=== PATIENT | male | born 1950 | race Caucasian/White ===

== ENCOUNTER 2022-05-17 10:51 | Emergency (ER) | payer MEDICARE, SELFPAY ==
[2022-05-17 11:01] VITALS: BP 140/73; PULSE 104; RESP 20; TEMP 39.3; O2SAT 96
[2022-05-17 11:20] VITALS: TEMP 39.3
[2022-05-17] MEDS: ACETAMINOPHEN 500 MG TABLET 1000 MG PO (11:20)
--- NOTE | 2022-05-17 11:21 | ED.GENADULT ---
HPI - General Adult General Chief complaint: Upper Respiratory Infection Stated complaint: Chills,Bodyaches Time Seen by Provider: 05/17/22 11:21 Source: patient, RN notes reviewed and old records reviewed Mode of arrival: ambulatory Limitations: no limitations History of Present Illness HPI narrative: 72-year-old male presents to the [facility] with complaints chills and body aches. Symptoms started this morning. Patient states symptoms started about 4:00 a.m.. Approximately 7 hours prior to arrival. 102.8 fever in triage. Last dose of Tylenol was 0400 Patient denies abdominal pain. No urinary symptoms. Denies chest pain or shortness of breath. Denies sinus symptoms or sore throat. Patient denies any past medical or surgical history. Onset (ago): hour(s) (7-8 hours) Related Data Home Medications Medication Instructions Recorded Confirmed No Home Medications 05/17/22 05/17/22 Allergies Allergy/AdvReac Type Severity Reaction Status Date / Time poison juana extract Allergy Mild Rash Verified 05/17/22 11:03 Review of Systems Review of Systems: All systems reviewed & are unremarkable except as noted in HPI and below Constitutional: Constitutional: Reports as per HPI and Reports fever(s) Eyes: Eyes: Reports no additional eye complaints ENT: Reports system reviewed and no additional complaints, except as documented Cardiovascular: Cardiovascular: Reports no additional cardiovascular complaints, Denies chest pain and Denies dyspnea Respiratory: Respiratory: Reports no additional respiratory complaints, Denies chest congestion, Denies cough and Denies dyspnea Gastrointestinal: Gastrointestinal: Reports no additional gastrointestinal complaints, Denies abdominal pain, Denies nausea and Denies vomiting Musculoskeletal: Musculoskeletal: Reports no additional musculoskeletal complaints Integumentary/Breasts: Skin/Breast: Reports system reviewed and no additional complaints, except as docu Neurologic: Reports system reviewed and no additional complaints, except as documented Psychiatric: Psychiatric: Reports no additional psychiatric complaints Allergic/Immunologic: Allergic/Immunologic: Reports no additional allergic/immunologic complaints [facility] Past Medical History Medical History History of chicken pox History of measles History of mumps Surgical History Surgical History History of vasectomy Hx of appendectomy (~1961) Family History Family History Father Diabetes mellitus Mother Parkinson disease Grandparent , age 67, [place] Heart attack Grandparent , age 91, natural causes No problems noted. Grandparent , age 68 No problems noted. Grandparent , age 92, natural causes No problems noted. Social History Social History Smoking status: Never smoker Alcohol intake: current Comments At the time of my signature, I reviewed and agree with the nursing past medical, surgical, social, and family history. There is no relevant family history pertinent to the patient complaint. Exam Const: General: cooperative, healthy appearing, comfortable, no acute distress, well developed, alert and well nourished Nutritional Appearance: well nourished Orientation/consciousness: patient oriented x3 Limitations: no limitations HENMT: Head: normal to inspection Ears: hearing grossly normal bilaterally and external ears normal Face/Nose/Sinus: Normal external nose present, Normal nares present, Normal nasal mucous membranes and turbinates present and normal facial exam Face and sinus: normal facial exam Mouth: Yes Normal oral and palatal mucosa present, Yes lip normal and Yes moist mucous membranes Throat: posterior oropharynx normal
[2022-05-17 11:41] VITALS: TEMP 39.3
== END 2022-05-17 11:41 | disposition home or self-care (01) ==
PROVIDERS: Emergency Provider Nurse Practitioner; PCP Family Medicine
DX: B34.9 Viral infection, unspecified (principal)
CPT/HCPCS: 87804; 99213; A9270; G0463

== ENCOUNTER 2022-06-16 15:12 | Outpatient (CLI) | payer MEDICARE, SELFPAY ==
--- NOTE | ~2022-06-16 | CT_ITS ---
EXAMINATION: CT abdomen pelvis wo con DATE: 06/16/2022 15:27 INDICATION: Fever TECHNIQUE: Computed tomography (CT) of the abdomen and pelvis was performed without intravenous contr ast. Automated exposure control and iterative reconstruction technique were employed. The dose-length product was 658.37 mGy-cm. COMPARISON: None FINDINGS: Lung bases are clear. Heart size is normal. Small to moderate-sized pericardial effusion. Small slidi ng-type hiatal hernia. Scattered hepatic and splenic calcifications consistent with old granulomatous disease. A few subcentimeter low-attenuation likely hepatic cysts or hemangiomas. Dependently layeri ng high attenuation sludge in the gallbladder. Pancreas and bilateral adrenal glands are normal. Ther e are also greater than 25, <3 mm stones in each kidney. No ureteral stones. There are multiple cysti c spaces at the bilateral renal jc with configuration favoring peripelvic cysts. No definitive hydr onephrosis. Bladder is normal. There is mild to moderate sigmoid and descending colon predominance di verticulosis without adjacent inflammatory change to suggest diverticulitis. No bowel obstruction. Bl adder is normal. Prostatomegaly. Small bilateral fat-containing inguinal hernias. No free intraperito elkin gas or fluid. No pathologically enlarged abdominal or pelvic lymphadenopathy. Moderate to severe lower lumbar spondylosis. IMPRESSION: 1. Numerous small bilateral renal stones and multiple parapelvic cysts. No ureteral stones or definit denilson hydronephrosis. 2. Small to moderate pericardial effusion. 3. Diverticulosis. 4. Small sliding-type hiatal hernia. Reviewed, dictated and finalized at location A. S [employer]OM[employer]ION DIRECTOR IMPRESSION: 1. Numerous small bilateral renal stones and multiple parapelvic cysts. No uret eral stones or definitive hydronephrosis. 2. Small to moderate pericardial effusion. 3. Diverticulosis. 4. Small sliding-type hiatal hernia.
== END 2022-06-16 15:13 ==
LOC: MICIMG 15:13
PROVIDERS: PCP Family Medicine; Visit Provider Family Medicine
DX: R50.9 Fever, unspecified (principal); N20.0 Calculus of kidney; I31.39 Other pericardial effusion (noninflammatory); K57.90 Diverticulosis of intestine, part unspecified, without perforation or abscess without bleeding; K44.9 Diaphragmatic hernia without obstruction or gangrene
CPT/HCPCS: 74176

== ENCOUNTER → 2022-12-22 14:08 | Outpatient (CLI) | payer MEDICARE, SELFPAY ==
--- NOTE | ~2022-12-22 | XR_ITS ---
EXAM: XR knee RT 3V DATE: 12/22/2022 14:19 HISTORY: no injury posterior knee pain for 4-6 weeks . COMPARISON: None available. FINDINGS: Normal mineralization. No fracture or dislocation. No lytic or blastic lesion. Mild medial joint space narrowing. Mild medial and lateral osteophytosis. Moderate patellofemoral osteophytosis. Quadriceps and patellar enthesopathy. No erosion or periosteal change. Soft tissues within normal li mits. IMPRESSION: Tricompartmental right knee osteoarthritis, moderate in the patellofemoral compartment. Reviewed, dictated and finalized at location K. IMPRESSION: Tricompartmental right knee osteoarthritis, moderate in the patello femoral compartment.
== END ==
PROVIDERS: PCP Family Medicine; Visit Provider Nurse Practitioner Family
DX: M25.561 Pain in right knee (principal); M17.11 Unilateral primary osteoarthritis, right knee
CPT/HCPCS: 73562

== ENCOUNTER 2023-01-19 08:01 | Outpatient (CLI) | payer MEDICARE, SELFPAY | END 2023-01-19 08:02 | disposition home or self-care (01) | LOC: ANHAUDIO 08:02 | PROVIDERS: PCP Family Medicine; Visit Provider Family Medicine | DX: H91.90 Unspecified hearing loss, unspecified ear (principal) | CPT/HCPCS: 99199 ==

== ENCOUNTER 2023-03-16 09:43 | Outpatient (CLI) | payer MEDICARE, SELFPAY | END 2023-03-16 09:44 | disposition home or self-care (01) | LOC: ANHAUDIO 09:44 | PROVIDERS: PCP Family Medicine; Visit Provider Family Medicine | DX: H90.3 Sensorineural hearing loss, bilateral (principal) | CPT/HCPCS: 92557; 92567 ==

== ENCOUNTER 2023-12-19 11:59 | Emergency (ER) | payer MEDICARE, SELFPAY ==
--- NOTE | 2023-12-19 12:13 | ED.GENADULT ---
HPI - General Adult General Chief complaint: Upper Respiratory Infection Stated complaint: fever, chills, +Covid Home test Time Seen by Provider: 12/19/23 12:13 Source: patient Mode of arrival: ambulatory Limitations: no limitations History of Present Illness HPI narrative: 73-year-old male patient presents to the [facility] with complaints of flu-like symptoms. Patient states he tested himself this morning and was COVID positive. Patient states he started getting chills and body aches last night during dinner and started running fevers over the night. Patient states he did take some [id number] Mucinex and Tylenol for symptoms. Related Data Allergies Allergy/AdvReac Type Severity Reaction Status Date / Time poison juana extract AdvReac Mild Rash Verified 12/19/23 12:05 Review of Systems Review of Systems: CONSTITUTIONAL: Positive fever, body aches and chills, denies sweats. EYES: Denies visual changes, redness, or discharge. ENT: positive rhinorrhea, congestion, denies sore throat, or otalgia. CARDIOVASCULAR: Denies chest pain, palpitations, or edema. RESPIRATORY: positive cough denies dyspnea. GASTROINTESTINAL: Denies abdominal pain, nausea, vomiting, or diarrhea. GENITOURINARY: Denies dysuria or hematuria. SKIN: Denies rash or itching. MUSCULOSKELETAL: Denies back pain, joint pain, or myalgia. NEUROLOGIC: Denies headache, numbness, or weakness. PSYCHIATRIC: Denies anxiety or depression. [facility]LY [facility], [facility] Past Medical History Medical History Calculus of kidney Enlarged prostate without lower urinary tract symptoms (luts) Foot drop, left History of chicken pox History of measles History of mumps Lumbago Migraine NOS/intractable Sensorineural hearing loss, bilateral Sterilization Vocal cord dysfunction Surgical History Surgical History History of vasectomy Hx of appendectomy (~1961) Family History Family History Father Diabetes mellitus Mother Parkinson disease Grandparent , age 67, [place] Heart attack Grandparent , age 91, natural causes No problems noted. Grandparent , age 68 No problems noted. Grandparent , age 92, natural causes No problems noted. Social History Social History Smoking status: Never smoker Alcohol intake: current Lack of Transportation: No Lack of Food: Never True Current Housing: I Have Housing Concerned About Future Housing: No Difficulty Paying Gas/Electric Bills: No Difficulty Paying for Meds: No Currently Unemployed: No Education: High School Diploma/GED Difficulty w/ Childcare or Family Care: No Comments At the time of my signature I agree with nursing past medical history, surgical, social, and family history. There is no relevant family history pertinent to the presenting complaint. Exam Narrative: GENERAL: Well-appearing, well-nourished, and in no acute distress. patient is shivering in covered in a sheet. HEAD: Normocephalic, atraumatic. EYES: PERRLA and EOMI. ENT: Nares clear, no rhinorrhea or epistaxis. Mucous membranes moist. Posterior pharynx with no erythema, tonsillar enlargement, exudates or lesions present. NECK: Supple. No lymphadenopathy CHEST: Clear to auscultation. No respiratory distress. HEART: Regular rate and rhythm. No murmur heard. Normal peripheral pulses. ABDOMEN: Soft, nontender, nondistended, normal active bowel sounds. EXTREMITIES: Normal range of motion. No edema. SKIN: Warm, dry, no rash. NEURO: No focal deficits. Alert and oriented x3. Course Course Level of Care: Express Care Visit Vital Signs Vital signs: Vital Signs Temperature 36.9 C 12/19/23 12:16 Pulse Rate 90 12/19/23 12:16 Respiratory Rate 18
[2023-12-19 12:16] VITALS: BP 128/70; PULSE 90; RESP 18; TEMP 36.9; O2SAT 98
== END 2023-12-19 12:31 | disposition home or self-care (01) ==
PROVIDERS: Emergency Provider Nurse Practitioner Family; PCP Family Medicine
DX: U07.1 COVID-19 (principal); N40.1 Benign prostatic hyperplasia with lower urinary tract symptoms; Z98.52 Vasectomy status
CPT/HCPCS: 99203; G0463